=== PATIENT | male | born 1945 | race African-American/Black ===

== ENCOUNTER 2020-10-22 13:11 | Inpatient (IN) | payer OTHER ==
[~2020-10-22] VITALS: Ht 162.6 cm; Wt 51.7 kg
[2020-10-22 13:30] VITALS: BP 89/59
[2020-10-22 14:26] LABS: HEMATOCRIT 41.3 % (42.0-52.0); HEMOGLOBIN 13.1 gm/dL (14.0-18.0); MCH 26.8 pg (26.0-34.0); MCHC 31.6 g/dL (28.0-37.0); MCV 84.8 fL (80.0-100.0); PLATELET COUNT 242 thou/uL (150-400); RBC 4.87 mil/uL (4.50-6.00); RDW 15.1 % (10.5-14.5); WBC 2.8 thou/uL (4.0-11.0)
[2020-10-22 14:30] LABS: CALCIUM 9.1 mg/dL (8.5-10.1); CREATININE 1.4 mg/dL (0.7-1.3); POTASSIUM 3.7 mmol/L (3.5-5.1)
[2020-10-22 14:40] LABS: ALBUMIN 3.7 g/dL (3.4-5.0); APTT 24.7 Seconds (24.5-32.8); INR 1.09; PROTIME 11.8 Seconds (10.5-12.1); TOTAL BILIRUBIN 0.3 mg/dL (0.2-1.0); TOTAL PROTEIN 8.1 g/dL (6.4-8.2)
[2020-10-22 15:38] LABS: URINE BILIRUBIN NEGATIVE (Negative); URINE BLOOD 2+ (Negative); URINE CLARITY CLEAR; URINE COLOR YELLOW; URINE GLUCOSE-RANDOM* NEGATIVE (Negative); URINE KETONES NEGATIVE (Negative); URINE LEUKOCYTES-REFLEX TRACE (Negative); URINE NITRITE-REFLEX NEGATIVE (Negative); URINE PROTEIN (DIPSTICK) 1+ (Negative); URINE UROBILINOGEN 0.2 E.U./dl (0.2-1.0)
[2020-10-22 15:47] LABS: FINE GRANULAR CASTS 0-3 Few /LPF (None Seen); SQUAMOUS 0-3 Few /LPF (0-3)
[2020-10-22 15:48] LABS: URINE WBC-REFLEX 0-5 Rare /HPF (0-5)
[2020-10-22 15:49] LABS: BACTERIA-REFLEX None Seen /HPF (None Seen); CRYSTALS None Seen /LPF (None Seen)
[2020-10-22 15:58] LABS: ABSOLUTE NEUTROPHILS 2.5 thou/uL (1.4-8.2)
[2020-10-23 02:56] LABS: HEMATOCRIT 31.2 % (42.0-52.0); MCH 26.8 pg (26.0-34.0); MCHC 31.5 g/dL (28.0-37.0); MCV 84.9 fL (80.0-100.0); RBC 3.68 mil/uL (4.50-6.00); RDW 15.5 % (10.5-14.5)
[2020-10-23 03:05] LABS: HEMOGLOBIN 9.9 gm/dL (14.0-18.0); WBC 22.4 thou/uL (4.0-11.0)
[2020-10-23 03:06] LABS: PLATELET COUNT 166 thou/uL (150-400)
[2020-10-23 03:16] LABS: CALCIUM 7.5 mg/dL (8.5-10.1); CREATININE 1.4 mg/dL (0.7-1.3); POTASSIUM 4.1 mmol/L (3.5-5.1)
[2020-10-23 04:14] LABS: ABSOLUTE NEUTROPHILS 20.2 thou/uL (1.4-8.2); METAMYELOCYTES 2 %
--- NOTE | 2020-10-23 07:30 | EKG ---
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1945 Requested By: Azalea Hernandez Order Number: [id number] MD: Anthony Beltran Measurements Intervals [place] Rate: 148 P: 126 IN: 148 QRS: 78 QRSD: 108 T: 67 QT: 359 QTc: 564 Interpretive Statements Supraventricular tachycardia Ventricular premature complex ST depression, probably rate related No previous ECG available for comparison Electronically Signed On 10-23-2020 7:29:58 CDT by Anthony Beltran [email or web address] <ELECTRONICALLY SIGNED> By: Anthony Beltran MD, [facility] 10/23/20 0729 [id number] Anthony Beltran MD, FACC /EPI
[2020-10-23 20:04] VITALS: BP 115/75
[2020-10-23 20:51] VITALS: BP 122/63
[2020-10-24 00:10] VITALS: BP 138/87
[2020-10-24 04:02] VITALS: BP 132/80
[2020-10-24 07:19] VITALS: BP 120/70
[2020-10-24 07:34] LABS: ALBUMIN 2.5 g/dL (3.4-5.0); ANION GAP 7 mmol/L (7-16); BUN 10 mg/dL (7-18); CALCIUM 8.2 mg/dL (8.5-10.1); CHLORIDE 111 mmol/L (98-107); CO2 25 mmol/L (21-32); CREATININE 0.9 mg/dL (0.7-1.3); DIRECT BILIRUBIN < 0.1 mg/dL (<0.1-0.2); GLUCOSE 103 mg/dL (74-106); PHOSPHORUS 2.2 mg/dL (2.6-4.7); SGOT 28 U/L (15-37); SGPT 20 U/L (16-63); SODIUM 143 mmol/L (136-145); TOTAL BILIRUBIN 0.3 mg/dL (0.2-1.0); TOTAL PROTEIN 6.1 g/dL (6.4-8.2)
--- NOTE | 2020-10-24 08:23 | HC ---
[facility] [place] [address] CONSULTATION Name: MARIPOSA SAMUELS Room #: 350-P ADM IN M.R.#: [id number] Admission: 10/22/20 Attend Phys: Dorothy Ames MD Discharge: Date of : 49 Report #: [id number] THIS REPORT FOR: cc: FAM - Family physician unknown FAM - Family physician unknown Chris Dick MD ~ DATE OF SERVICE: 10/23/2020 INFECTIOUS DISEASE CONSULTATION ATTENDING PHYSICIAN: Dr. Ames. REASON FOR EVALUATION: COVID-19 infection, complicated by pneumonitis, respiratory failure. HISTORY OF PRESENT ILLNESS: Chart reviewed, the patient examined. This is a 75-year-old with fairly profound dementia I guess who presented to the emergency room with bright blood per rectum apparently has not been complaining otherwise, was found to be hypotensive, tachycardic with saturations in the mid upper 80s on room air. His son who is present with him apparently was not aware of any other patient's complaints. Initial chest x-ray showed no acute process. Initial screening COVID test was negative; however, followup PCR was positive. Lactic acid was markedly elevated at 6.7. Procalcitonin of 9.22. Urinalysis was fairly unremarkable. White count showed leukopenia with a total result of 2.8. CT abdomen and pelvis noted no acute process, mild sigmoid colonic mural thickening and some urinary bladder thickening as well. Followup chest x-ray did show some patchy infiltrate in the mid and right lower lobe and has persistently elevated lactic acid, most recently is 2.4. Blood cultures are sterile thus far collected at time of admission. On questioning, he states he feels fine. He has no complaints, specifically asked about pain, any breathing difficulties. He was unaware of his requirement of oxygen 2 liters per nasal cannula. ALLERGIES: None known. CURRENT MEDICATIONS: Include remdesivir, dexamethasone, vancomycin, norepinephrine, Zosyn, ivermectin, ondansetron, zolpidem. PAST MEDICAL HISTORY: Notable for the dementia. SOCIAL HISTORY: He is disabled, otherwise difficult to ascertain details. Apparently, he is a nonsmoker, no ethanol. FAMILY HISTORY: Noncontributory. REVIEW OF SYSTEMS: Not reliably obtained. [facility] [address] [place] [address] CONSULTATION Name: MARIPOSA SAMUELS Room #: 350-P [facility] IN ..#: [id number] Admission: 10/22/20 Attend Phys: Dorothy Ames MD Discharge: Date of : 49 Report #: [id number] PHYSICAL EXAMINATION: GENERAL: Appears chronically ill, undernourished. He is generally pleasant, mild distress, appears chronically ill appearing and undernourished. HEENT: Normocephalic. Extraocular muscles intact. Nasal cannula in place. NECK: Supple. LUNGS: Few scattered coarse breath sounds. HEART: Regular. I do not appreciate a murmur. ABDOMEN: Mildly distended, otherwise soft, nontender. EXTREMITIES: No cyanosis. GENITOURINARY AND RECTAL: Deferred. LABORATORY DATA: Lactic acid 2.4. Blood cultures sterile thus far. CBC from this morning, now white count 22.4, H and H 9.9 and 31.2, platelets of 166. I will suggest reactive process. Coronavirus PCR was positive. Electrolytes: Sodium 140, potassium 4.1, chloride 107, bicarbonate 24, anion gap of 9, BUN and creatinine 15 and 1.4. Chest x-ray, ovoid mass-like opacity within the right perihilar region, may represent some shadows can exclude lymphadenopathy. ASSESSMENT AND PLAN: 1. COVID-19 infection, complicated by pneumonitis and respiratory failure. 2. Gastrointestinal hemorrhage, likely lower side. 3. Dementia, started a combination regimen including empiric antibacterials, which I think are reasonable at this point, cover the lungs and the bowel can entirely exclude an enteritis. With continued diarrhea, we will send stool studies, doubt he will be able to produce any sputum at this point short of intubation. He remains quite tenuous. We will continue to monitor expectantly. <ELECTRONICALLY SIGNED> By: Chris Dick MD 10/24/20822 [id number] Chris Dick MD /nt
[2020-10-24 09:24] LABS: HEMATOCRIT 30.8 % (42.0-52.0); HEMOGLOBIN 9.7 gm/dL (14.0-18.0); MCH 26.7 pg (26.0-34.0); MCHC 31.6 g/dL (28.0-37.0); MCV 84.4 fL (80.0-100.0); RBC 3.65 mil/uL (4.50-6.00); RDW 15.6 % (10.5-14.5); WBC 24.1 thou/uL (4.0-11.0)
[2020-10-24 11:00] VITALS: BP 112/71
[2020-10-24 11:31] LABS: HEMOGLOBIN 9.6 gm/dL (14.0-18.0)
[2020-10-24 11:40] LABS: CALCIUM 8.4 mg/dL (8.5-10.1); CREATININE 0.9 mg/dL (0.7-1.3); POTASSIUM 3.9 mmol/L (3.5-5.1)
[2020-10-24 15:06] VITALS: BP 133/89
[2020-10-24 19:22] VITALS: BP 152/100
[2020-10-25 02:59] VITALS: BP 148/93
[2020-10-25 05:45] LABS: ALBUMIN 2.4 g/dL (3.4-5.0); ANION GAP 9 mmol/L (7-16); BUN 8 mg/dL (7-18); CALCIUM 8.2 mg/dL (8.5-10.1); CHLORIDE 104 mmol/L (98-107); CO2 28 mmol/L (21-32); CREATININE 0.8 mg/dL (0.7-1.3); DIRECT BILIRUBIN < 0.1 mg/dL (<0.1-0.2); GLUCOSE 135 mg/dL (74-106); PHOSPHORUS 2.3 mg/dL (2.5-4.9); POTASSIUM 4.2 mmol/L (3.5-5.1); SGOT 21 U/L (15-37); SGPT 20 U/L (30-65); SODIUM 141 mmol/L (136-145); TOTAL BILIRUBIN 0.2 mg/dL (0.2-1.0); TOTAL PROTEIN 6.2 g/dL (6.4-8.2)
[2020-10-25 07:14] VITALS: BP 167/82
[2020-10-25 08:35] VITALS: BP 145/80
[2020-10-25 09:41] LABS: HEMATOCRIT 31.4 % (42.0-52.0); HEMOGLOBIN 9.8 gm/dL (14.0-18.0); MCH 26.3 pg (26.0-34.0); MCHC 31.2 g/dL (28.0-37.0); MCV 84.2 fL (80.0-100.0); PLATELET COUNT 164 thou/uL (150-400); RBC 3.73 mil/uL (4.50-6.00); RDW 15.9 % (10.5-14.5); WBC 27.6 thou/uL (4.0-11.0)
[2020-10-25 10:32] LABS: ABSOLUTE NEUTROPHILS 24.8 thou/uL (1.4-8.2)
[2020-10-25 10:33] LABS: ANISOCYTOSIS 1+
[2020-10-25 10:59] VITALS: BP 137/79
[2020-10-25 15:29] VITALS: BP 131/71
[2020-10-25 19:15] VITALS: BP 136/73
[2020-10-26 03:05] VITALS: BP 151/84
[2020-10-26 04:26] LABS: ALBUMIN 2.4 g/dL (3.4-5.0); ANION GAP 5 mmol/L (7-16); BUN 8 mg/dL (7-18); CALCIUM 8.4 mg/dL (8.5-10.1); CHLORIDE 105 mmol/L (98-107); CO2 31 mmol/L (21-32); CREATININE 0.8 mg/dL (0.7-1.3); DIRECT BILIRUBIN < 0.1 mg/dL (<0.1-0.2); GLUCOSE 113 mg/dL (74-106); PHOSPHORUS 2.5 mg/dL (2.5-4.9); POTASSIUM 4.1 mmol/L (3.5-5.1); SGOT 14 U/L (15-37); SGPT 19 U/L (30-65); SODIUM 141 mmol/L (136-145); TOTAL BILIRUBIN 0.2 mg/dL (0.2-1.0); TOTAL PROTEIN 6.1 g/dL (6.4-8.2)
[2020-10-26 05:20] LABS: HEMATOCRIT 30.9 % (42.0-52.0); MCH 26.9 pg (26.0-34.0); MCHC 32.4 g/dL (28.0-37.0); PLATELET COUNT 179 thou/uL (150-400); RBC 3.72 mil/uL (4.50-6.00); RDW 15.8 % (10.5-14.5); WBC 26.4 thou/uL (4.0-11.0)
[2020-10-26 07:15] VITALS: BP 148/76
[2020-10-26 08:48] LABS: ABSOLUTE NEUTROPHILS 22.7 thou/uL (1.4-8.2); MYELOCYTES 1 %
[2020-10-26 08:49] LABS: ANISOCYTOSIS 1+; OVALOCYTES FEW
[2020-10-26 11:04] VITALS: BP 141/75
[2020-10-26 15:40] VITALS: BP 133/91
[2020-10-26 19:06] VITALS: BP 145/89
[2020-10-27 03:35] VITALS: BP 166/78
[2020-10-27 07:13] VITALS: BP 147/83
[2020-10-27 10:38] VITALS: BP 147/83
[2020-10-27 10:46] VITALS: BP 147/83
[2020-10-27 11:05] VITALS: BP 134/82
[2020-10-27] MEDS ORDERED: DECADRON6 MG PO (12:48)
[2020-10-27] MEDS ORDERED: VITAMIN D325 MC2 PO (12:48)
[2020-10-27] MEDS ORDERED: ACEROLA C500 MG PO (12:48)
[2020-10-27] MEDS ORDERED: AUGMENTIN 875-1 EACH PO (12:48)
[2020-10-27] MEDS ORDERED: VITAMIN B-1100 M2 PO (12:48)
[2020-10-27] MEDS ORDERED: PROAIR HFA8.5 GM INH (12:48)
[2020-10-27] MEDS ORDERED: PEPCID20 MG PO (12:48)
[2020-10-27] MEDS ORDERED: ZINC SULFATE50 MG PO (12:48)
[2020-10-27 13:15] LABS: HEMATOCRIT 36.3 % (42.0-52.0); HEMOGLOBIN 11.5 gm/dL (14.0-18.0); MCHC 31.6 g/dL (28.0-37.0); MCV 82.4 fL (80.0-100.0); PLATELET COUNT 220 thou/uL (150-400); RBC 4.41 mil/uL (4.50-6.00); RDW 15.2 % (10.5-14.5); WBC 18.8 thou/uL (4.0-11.0)
[2020-10-27 13:42] LABS: ABSOLUTE NEUTROPHILS 14.5 thou/uL (1.4-8.2); METAMYELOCYTES 1 %; PLATELET ESTIMATE NORMAL
[2020-10-27 15:09] VITALS: BP 152/90
== END 2020-10-27 18:23 | disposition home health service (06) | DRG 871 ==
LOC: ER 13:11 → EROBS 17:50 → 3W 17:50 → EROBS 10-23 04:42 → 3W 10-23 20:46
PROVIDERS: Hospitalist; Nurse Practitioner Family; Specialist; ADMIT Internal Medicine; ATTEND Internal Medicine
PROC: 02HV33Z Insertion of Infusion Device into Superior Vena Cava, Percutaneous Approach (ICD-10-PCS; principal; 2020-10-22)
PROC: XW033E5 Introduction of Remdesivir Anti-infective into Peripheral Vein, Percutaneous Approach, New Technology Group 5 (ICD-10-PCS; 2020-10-23)
DX: A41.9 Sepsis, unspecified organism (principal); J96.01 Acute respiratory failure with hypoxia; U07.1 COVID-19; J12.82 Pneumonia due to coronavirus disease 2019; R57.1 Hypovolemic shock; G93.41 Metabolic encephalopathy; N17.9 Acute kidney failure, unspecified; K92.2 Gastrointestinal hemorrhage, unspecified; E87.2 Acidosis; F03.90 Unspecified dementia, unspecified severity, without behavioral disturbance, psychotic disturbance, mood disturbance, and anxiety; R65.20 Severe sepsis without septic shock; E86.0 Dehydration; K52.9 Noninfective gastroenteritis and colitis, unspecified; D64.9 Anemia, unspecified
CPT/HCPCS: 10779; 10879